=== PATIENT | male | born 1950 | race Caucasian/White ===

== ENCOUNTER 2025-10-11 09:27 | Outpatient (CLI) | payer OTHER | END 2025-10-11 09:28 | disposition home or self-care (01) | LOC: CSHRAD 09:27 | PROVIDERS: ATTEND Physician Assistant Medical | DX: R11.10 Vomiting, unspecified (principal); K21.9 Gastro-esophageal reflux disease without esophagitis; K59.00 Constipation, unspecified; K22.4 Dyskinesia of esophagus; R93.3 Abnormal findings on diagnostic imaging of other parts of digestive tract | CPT/HCPCS: 74220 ==